=== PATIENT | female | born 1970 | race Caucasian/White ===

== ENCOUNTER 2020-08-29 14:12 | Emergency (ER) | payer MEDICAID ==
[~2020-08-29] VITALS: Ht 162.6 cm; Wt 63.5 kg
[~2020-08-29 14:12] MED LIST: ALBU6.7H IH; CHLO50TA2 PO; VIC PO
[2020-08-29 14:22] VITALS: BP 148/81
--- NOTE | 2020-08-29 15:52 | NUR ---
C/O DYSURIA & URINARY FREQUENCY X1 MONTH. PT STATES SHE WAS TREATED FOR A UTI A DEW WEEKS PRIOR BUT FEELS IT WAS NEVER RESOLVED. PT DENIES FEVER. BED IN LOW POSITION/SIDE RAIL UP X1.
--- NOTE | 2020-08-29 15:53 | NUR ---
HOLDEN ANDERSON EVALUATING PT AT BEDSIDE
[2020-08-29 16:00] VITALS: BP 148/81
--- NOTE | 2020-08-29 16:01 | NUR ---
Patient discharged with v/s stable. Written and verbal after care instructions given and explained. Patient alert, oriented and verbalized understanding of instructions. Ambulatory with steady gait. All questions addressed prior to discharge. ID band removed. Patient advised to follow up with PMD. Rx of KEFLEX, PHENAZOPYRIDINE, & FLUCONAZOLE given. Patient educated on indication of medication including possible reaction and side effects. Opportunity to ask questions provided and answered.
== END 2020-08-29 16:01 | disposition home or self-care (01) ==
LOC: MED 14:12
DX: N39.0 Urinary tract infection, site not specified (principal); B37.3 Candidiasis of vulva and vagina; F17.210 Nicotine dependence, cigarettes, uncomplicated; J45.909 Unspecified asthma, uncomplicated; J44.9 Chronic obstructive pulmonary disease, unspecified; R56.9 Unspecified convulsions; Z79.899 Other long term (current) drug therapy
CPT/HCPCS: 81002; 81025; 87086; 99283